=== PATIENT | male | born 1945 | race Caucasian/White ===

== ENCOUNTER 2023-02-12 05:57 | Observation (INO) | payer OTHER ==
[2023-01-31 16:18] LABS: BASOPHILS # (AUTO) 0.1 X10'3 (0-0.2); BASOPHILS % (AUTO) 0.9 % (0-1); EOSINOPHILS # (AUTO) 0.1 X10'3 (0-0.9); EOSINOPHILS % (AUTO) 1.8 % (0-6); LYMPHOCYTES # (AUTO) 0.9 X10'3 (1.1-4.8); LYMPHOCYTES % (AUTO) 16.5 % (21-51); MEAN CORPUSCULAR HEMOGLOBIN 32.1 PG (27.0-31.0); MEAN CORPUSCULAR HGB CONC 33.9 g/dL (33.0-36.5); MEAN CORPUSCULAR VOLUME 94.8 FL (78-98); MEAN PLATELET VOLUME 6.3 FL (7.4-10.4); MONOCYTES # (AUTO) 0.6 X10'3 (0-0.9); NEUTROPHILS # (AUTO) 3.9 X10'3 (1.8-7.7); NEUTROPHILS % (AUTO) 69.8 % (42-75); PRE OP HEMATOCRIT 44.9 % (42.0-52.0); PRE OP HEMOGLOBIN 15.2 g/dL (14.0-17.9); PRE OP PLATELET COUNT 172 X10'3 (140-440); RED BLOOD COUNT 4.74 X10'6 (4.70-6.10); RED CELL DISTRIBUTION WIDTH 13.7 % (11.5-14.5)
[2023-01-31 16:32] LABS: ALBUMIN 3.8 G/DL (3.4-5.0); ALBUMIN/GLOBULIN RATIO 1.1 (1.1-1.5); ALKALINE PHOSPHATASE 65 IU/L (46-116); BLOOD UREA NITROGEN 12 MG/DL (7-18); BUN/CREATININE RATIO 15.6 (10.0-20.0); CALCIUM 9.3 MG/DL (8.5-10.1); CHLORIDE 103 MMOL/L (99-107); CREATININE 0.77 MG/DL (0.60-1.10); PRE OP ALT 36 U/L (30-65); PRE OP ANION GAP 8 (8-16); PRE OP AST 26 U/L (10-37); PRE OP BILIRUB, TOTAL 0.6 MG/DL (0.0-1.0); PRE OP GLUCOSE 107 MG/DL (70-104); PRE OP POTASSIUM 4.3 MMOL/L (3.4-5.1); PRE OP SODIUM 140 MMOL/L (135-145); TOTAL CARBON DIOXIDE 28.8 MMOL/L (24-32); TOTAL PROTEIN 7.2 G/DL (6.4-8.2); eGFR > 90 ML/MIN
[~2023-02-12] VITALS: Ht 177.8 cm; Wt 95.8 kg
[2023-02-12] VITALS (20 sets, daily range): BP systolic 91–136; BP diastolic 50–75
[~2023-02-12 05:57] MED LIST: AMLO2.5T2 PO; ASCO500T28 PO; ATOR40TA7 PO; CALC500T63 PO; DOXY-224 PO; FLO0.4C PO; MULT-1085 PO; SILD100T70 PO; VALA100031 PO; ZINC50CA2 PO; cefazolin 2gm/D5W 100mL 100 ML IV ONE; famotidine 20mg tablet PO ONE; tranexamic acid 650mg tablet PO ONE; vancomycin 1,500 MG in NS 300ml IV soln IV ONE
[2023-02-12] MEDS ORDERED: ROPIVAcaine 0.5% (5mg/ml) 30ml vial ONE ×2 (06:42→11:03)
[2023-02-12] MEDS ORDERED: mineral oil 10ml sterile, topical TP ONE (06:42)
[2023-02-12] MEDS ORDERED: ketorolac trometh. 30mg/ml inj. ONE (06:43)
[2023-02-12] MEDS: ringers solution, lacted 1,000 ML IV SCH ×2 (07:17→14:57)
--- NOTE | 2023-02-12 07:30 | NUR ---
PT ABLE TO COMPLETE ALL 5 SHOWERS WITH OINTMENT, PULSES PRESENT BILATERALLY (DOPPLER TO RIGHT), CSM - PRESENT, PT ABLE TO REVIEW ALL OF THE EDUCATIONAL RESOURCES
[2023-02-12] MEDS ORDERED: proCHLORperazine 10 MG/2 ml inj IV PRN (08:05)
[2023-02-12] MEDS ORDERED: ringers solution, lacted 1,000 ML IV SCH (08:05)
[2023-02-12] MEDS ORDERED: morphine 2 MG/ML inj. syringe IV PRN (08:05)
[2023-02-12] MEDS ORDERED: morphine 4 MG/ML inj SYRINge IV PRN (08:05)
[2023-02-12] MEDS ORDERED: acetaminophen 1,000mg/100ml IV 100 ML IV PRN (08:05)
[2023-02-12] MEDS ORDERED: ondansetron/PF 4mg/2ml inj IV PRN ×2 (08:05→11:50)
[2023-02-12] MEDS ORDERED: hydrALAZINE 20mg/ml inj. IV PRN (08:05)
[2023-02-12] MEDS ORDERED: labetalol 20mg/4ml (5mg/ml) syringe IV PRN (08:05)
[2023-02-12] MEDS ORDERED: meperidine/PF 25mg/ml syringe IV PRN ×3 (08:05)
[2023-02-12] MEDS ORDERED: cloNIDine hcl/PF 100mcg/ml inj ONE (08:53)
[2023-02-12] MEDS ORDERED: BUPIVAcaine/dex-water/PF 7.5 mg/ml 2ml ampul ONE (09:14)
[2023-02-12] MEDS ORDERED: fentaNYL/PF 50MCG/1 ML 2ML syringe ONE (09:16)
[2023-02-12] MEDS ORDERED: midazolam 1 mg/ML 2ml injection ONE (09:17)
[2023-02-12] MEDS ORDERED: tetracaine 1% (10mg/ml) pres. free inj. ONE (09:18)
[2023-02-12] MEDS ORDERED: 0.9 % SODIUM CHLORIDE 10 ML VIAL ONE ×2 (11:03)
[2023-02-12] MEDS ORDERED: dexamethasone sod phosphate 4mg/ml inj. ONE (11:03)
--- NOTE | 2023-02-12 11:29 | NUR ---
Received from OR via , accompanied by Anesthesiologist KIRBY AND OR NURSE and report given by Anesthesiolgist. PT IS AWAKE AND ALERT AND DENIES PAIN OR DISCOMFORT. REPORTS NO FEELING TO BILATERAL LEGS. 20G TO LT WRIST. DAMIAN IN PLACE; PATENT. VSS Addendum: 02/12/23 at 1147 by Stacey Panda RN Amended: Links added.
[2023-02-12] MEDS ORDERED: bisacodyl 10mg suppository rectal RC PRN (11:50)
[2023-02-12] MEDS ORDERED: naloxone 0.4 mg/ml inj IV PRN (11:50)
[2023-02-12] MEDS ORDERED: non-formulary drug (Sildenafil Citrate 1 TAB) PO PRN (11:50)
[2023-02-12] MEDS: potassium cl 20mEq in 1/2 NS 1,000 ML IV SCH ×2 (11:50→20:36)
[2023-02-12] MEDS ORDERED: acetaminophen 325mg tablet PO PRN (11:50)
[2023-02-12] MEDS ORDERED: HYDROmorphone 1 mg/ml syringe IV PRN (11:50)
[2023-02-12] MEDS ORDERED: HYDROcodone/acetaminophen 10/325mg tab PO PRN ×2 (11:50)
[2023-02-12] MEDS ORDERED: HYDROmorphone inj. 0.5 MG/0.5 ML DISP.SYRIN IV PRN (11:50)
[2023-02-12] MEDS ORDERED: diphenhydrAMINE 25mg capsule PO PRN ×2 (11:50)
[2023-02-12] MEDS ORDERED: oxyCODONE IR 5mg (immed. release) tablet PO PRN (11:50)
[2023-02-12] MEDS ORDERED: magnesium hydroxide 30ml (MOM) UD suspension PO PRN (11:50)
--- NOTE | 2023-02-12 12:49 | NUR ---
PATIENT TAKEN TO ORTHO FLOOR ROOM WITH ALL BELONGINGS AND HOOKED UP TO ALL MONITORS IN ROOM AND REPORT GIVEN TO RN WHO HAS TAKEN OVER PATIENT CARE. Addendum: 02/12/23 at 1356 by Stacey Panda RN Amended: Links added.
[2023-02-12] MEDS: ceFAZolin/D5W- 1GM premix 50 ML IV SCH (15:54)
--- NOTE | 2023-02-12 18:01 | NUR ---
I agree with all CLERICAL METHODS ANALYST Richardson gomes documentations and medication administrations.
[2023-02-12] MEDS ORDERED: vancomycin/NS 1 GM ADD-VANTAGE 250 ML IV SCH (20:00)
[2023-02-12] MEDS ORDERED: valacyclovir 500mg tablet PO PRN (20:00)
[2023-02-12] MEDS: DOXYCYCLINE 100MG CAPSULE PO SCH (20:37)
[2023-02-12] MEDS ORDERED: amLODIPine 2.5mg tablet PO SCH (21:00)
[2023-02-12] MEDS ORDERED: sennosides 8.6mg tablet PO SCH (21:00)
[2023-02-12] MEDS ORDERED: atorvastatin 20mg tablet PO SCH (21:00)
[2023-02-13] MEDS: ceFAZolin/D5W- 1GM premix 50 ML IV SCH (00:28)
[2023-02-13 02:00] VITALS: BP 99/62
[2023-02-13] MEDS: oxyCODONE IR 5mg (immed. release) tablet PO PRN ×2 (04:04→08:12)
[2023-02-13] MEDS: potassium cl 20mEq in 1/2 NS 1,000 ML IV SCH (05:45)
[2023-02-13 06:00] VITALS: BP 126/71
--- NOTE | 2023-02-13 06:10 | NUR ---
Patient in room ORTHO 4013B. I have received report from Jaron GUTIÉRREZ and had the opportunity to ask questions and assume patient care.
--- NOTE | 2023-02-13 06:21 | NUR ---
Problems reprioritized. Patient report given, questions answered & plan of care reviewed with jagruti Fuller and jagruti Wade.
[2023-02-13 06:45] LABS: BASOPHILS % (AUTO) 0.2 % (0-1); EOSINOPHILS % (AUTO) 0.1 % (0-6); HEMATOCRIT 34.6 % (42.0-52.0); HEMOGLOBIN 11.9 g/dl (14.0-17.9); LYMPHOCYTES # (AUTO) 0.8 X10'3 (1.1-4.8); LYMPHOCYTES % (AUTO) 8.3 % (21-51); MEAN CORPUSCULAR HEMOGLOBIN 32.6 PG (27.0-31.0); MEAN CORPUSCULAR HGB CONC 34.4 g/dL (33.0-36.5); MEAN CORPUSCULAR VOLUME 94.7 FL (78-98); MEAN PLATELET VOLUME 6.7 FL (7.4-10.4); MONOCYTES # (AUTO) 0.9 X10'3 (0-0.9); MONOCYTES % (AUTO) 9.4 % (2-12); NEUTROPHILS # (AUTO) 8.3 X10'3 (1.8-7.7); PLATELET COUNT 198 X10'3 (140-440); RED BLOOD COUNT 3.66 X10'6 (4.70-6.10); RED CELL DISTRIBUTION WIDTH 13.5 % (11.5-14.5); WHITE BLOOD COUNT 10.1 X10'3 (4.5-11.0)
[2023-02-13 06:53] LABS: ANION GAP 6 (8-16); CHLORIDE 106 MMOL/L (99-107); POTASSIUM 4.2 MMOL/L (3.5-5.1); SODIUM 137 MMOL/L (135-145); TOTAL CARBON DIOXIDE 25.1 MMOL/L (24-32)
[2023-02-13] MEDS ORDERED: ascorbic acid 500mg tablet PO SCH (08:00)
[2023-02-13] MEDS ORDERED: multivitamins, therapeutics tablet PO SCH (08:00)
[2023-02-13] MEDS ORDERED: tamsulosin 0.4mg capsule PO SCH (08:00)
[2023-02-13] MEDS ORDERED: calcium carbonate 500mg tablet PO SCH (08:00)
[2023-02-13] MEDS ORDERED: non-formulary drug (Zinc Acetate (Galzin) 1 CAP) PO SCH (08:00)
[2023-02-13] MEDS: DOXYCYCLINE 100MG CAPSULE PO SCH (08:12)
[2023-02-13] MEDS ORDERED: aspirin 325mg tablet PO SCH (08:30)
[2023-02-13 10:00] VITALS: BP 131/63
--- NOTE | 2023-02-13 11:00 | NUR ---
Patient discharged home with Fiance. Belongings in hand. Pt alert and appropriate at the time of discharge, PIV discontinued, cannula tip in tact.
--- NOTE | 2023-02-13 11:12 | NUR ---
Joint surgery consult: Pt s/p R knee surgery this admit per EMR. Pt/SO seen by JONAS for written/verbal high protein diet ed w/ RD contact information provided. JONAS encouraged pt/SO to contact dietitian's office if further nutrition questions/concerns. Addendum: 02/13/23 at [address] Amended: Links added.
--- NOTE | 2023-02-13 11:28 | NUR ---
All SUPERINTENDENT POWERDain Roca documentation and medication administrations have been reviewed and assisted. I agree with all documentation and medication administrations.
== END 2023-02-13 11:00 | disposition home or self-care (01) ==
LOC: PAS 05:57 → ORTHO 4S 11:54
PROVIDERS: ADMIT Orthopaedic Surgery; ATTEND Orthopaedic Surgery
DX: M17.11 Unilateral primary osteoarthritis, right knee (principal); I10 Essential (primary) hypertension; N40.0 Benign prostatic hyperplasia without lower urinary tract symptoms; Z79.899 Other long term (current) drug therapy; G89.18 Other acute postprocedural pain
CPT/HCPCS: 20985; 27447; 36415; 64447; 80051; 80053; 82948; 85025; 87081; 96365; 96366; 96367; 97110; 97116; 97161; C1713; C1776; G0378; J0690; J0735; J1100; J1885; J2250; J2795; J3010; J3370; J3480; J3490; J7120; A4215; A7000